=== PATIENT | male | born 1985 | race African-American/Black ===

== ENCOUNTER 2017-10-31 18:35 | Emergency (ER) | payer OTHER ==
[~2017-10-31] VITALS: Ht 185.4 cm; Wt 77.1 kg
[2017-10-31] MEDS ORDERED: PERCOCET 5-3251 EACH PO (18:58)
[2017-10-31] MEDS ORDERED: KEFLEX500 M1 PO (18:59)
== END 2017-10-31 19:00 | disposition home or self-care (01) ==
LOC: ER 18:35
DX: L76.82 Other postprocedural complications of skin and subcutaneous tissue (principal)

== ENCOUNTER 2019-05-10 00:09 | Emergency (ER) | payer BC, OTHER ==
[~2019-05-10] VITALS: Ht 185.4 cm; Wt 81.7 kg
[~2019-05-10 00:09] MED LIST: KEFLEX500 M1 PO; PERCOCET 5-3251 EACH PO
[2019-05-10 00:11] VITALS: BP 125/81
[2019-05-10] MEDS ORDERED: PREDNISONE 20 M20 MG PO (00:38)
[2019-05-10] MEDS ORDERED: NAPROXEN500 MG PO (00:38)
[2019-05-10] MEDS ORDERED: ROBAXIN 750 MG750 MG PO (00:38)
== END 2019-05-10 00:58 | disposition home or self-care (01) ==
LOC: ER 00:09
DX: M54.41 Lumbago with sciatica, right side (principal)